=== PATIENT | male | born 1940 | race Caucasian/White ===

== ENCOUNTER 2017-11-22 12:16 | Emergency (ER) | payer MEDICARE | END 2017-11-22 12:50 | disposition home or self-care (01) | LOC: NAV ERS 12:16 | DX: J06.9 Acute upper respiratory infection, unspecified (principal); M10.9 Gout, unspecified; Z87.891 Personal history of nicotine dependence; Z79.899 Other long term (current) drug therapy | CPT/HCPCS: 99283 ==

== ENCOUNTER 2017-11-26 15:36 | Emergency (ER) | payer MEDICARE ==
[2017-11-26] MEDS ORDERED: Lidocaine 1% 20 ML MDV ONE (17:19)
[2017-11-26] MEDS ORDERED: cefTRIAXone\\ROCEPHIN 1 GM VIAL ONE (17:19)
[2017-11-26] MEDS ORDERED: methylPREDNISolone Acetate 40 mg/ml Vial ONE (17:19)
--- NOTE | 2017-11-26 17:36 | RAD ---
PORTABLE CHEST ONE VIEW: 11/26/17 at 4:12 p.m. HISTORY: Dyspnea, cough. FINDINGS: The heart size is normal. The lungs expanded without focal areas of consolidation, pneumothorax or pl eural effusions. IMPRESSION: No radiographic evidence of acute cardiopulmonary process. POS: [facility]
== END 2017-11-26 17:50 | disposition home or self-care (01) ==
LOC: NAV ERS 15:36
DX: J20.9 Acute bronchitis, unspecified (principal); M10.9 Gout, unspecified; Z87.891 Personal history of nicotine dependence; Z79.899 Other long term (current) drug therapy
CPT/HCPCS: 71045; 94640; 96372; J0696; J1030; J2001; J7620

== ENCOUNTER 2020-12-18 10:23 | Emergency (ER) | payer MEDICARE | END 2020-12-18 12:40 | disposition home or self-care (01) | LOC: NAV ERS 10:23 | DX: S70.02XA Contusion of left hip, initial encounter (principal); I25.10 Atherosclerotic heart disease of native coronary artery without angina pectoris; Z87.891 Personal history of nicotine dependence; Z79.899 Other long term (current) drug therapy; W22.8XXA Striking against or struck by other objects, initial encounter | CPT/HCPCS: 70450; 72131 ==

== ENCOUNTER 2021-04-05 12:19 | Emergency (ER) | payer MEDICARE | END 2021-04-05 14:38 | disposition home or self-care (01) | LOC: NAV ERS 12:19 | DX: K08.89 Other specified disorders of teeth and supporting structures (principal); Z87.891 Personal history of nicotine dependence | CPT/HCPCS: 70360; 71046 ==

== ENCOUNTER 2021-05-07 13:54 | Emergency (ER) | payer MEDICARE ==
[2021-05-09 02:21] LABS: SARS-CoV-2 PCR by NAA DETECTED (NotDetected)
== END 2021-05-07 15:32 | disposition home or self-care (01) ==
LOC: NAV ERS 13:54
DX: U07.1 COVID-19 (principal); I25.10 Atherosclerotic heart disease of native coronary artery without angina pectoris; Z87.891 Personal history of nicotine dependence; Z79.899 Other long term (current) drug therapy
CPT/HCPCS: 99283; U0003; U0005

== ENCOUNTER 2021-11-03 13:36 | Emergency (ER) | payer OTHER, MEDICARE ==
[2021-11-03] MEDS ORDERED: Boostrix 0.5 ML (Tdap) VIAL ONE (14:03)
[2021-11-03] MEDS ORDERED: Acetaminophen/Codeine 30-300mg Tablet ONE (14:03)
== END 2021-11-03 15:35 | disposition home or self-care (01) ==
LOC: NAV ERS 13:36
DX: S22.41XA Multiple fractures of ribs, right side, initial encounter for closed fracture (principal); S60.811A Abrasion of right wrist, initial encounter; I25.10 Atherosclerotic heart disease of native coronary artery without angina pectoris; W10.1XXA Fall (on)(from) sidewalk curb, initial encounter; Y92.512 Supermarket, store or market as the place of occurrence of the external cause; Z23 Encounter for immunization; Z87.891 Personal history of nicotine dependence; Z79.899 Other long term (current) drug therapy
CPT/HCPCS: 71250; 90471; 90715; 94799

== ENCOUNTER 2023-08-03 11:58 | Emergency (ER) | payer MEDICARE | END 2023-08-03 13:55 | disposition home or self-care (01) | LOC: NAV ERS 11:58 | DX: S22.41XA Multiple fractures of ribs, right side, initial encounter for closed fracture (principal); I25.10 Atherosclerotic heart disease of native coronary artery without angina pectoris; Z87.891 Personal history of nicotine dependence; Z79.899 Other long term (current) drug therapy; W19.XXXA Unspecified fall, initial encounter | CPT/HCPCS: 94799 ==

== ENCOUNTER 2024-05-31 15:25 | Emergency (ER) | payer MEDICARE ==
[2024-05-31] MEDS ORDERED: Bacitracin 1 PK ONE (15:54)
== END 2024-05-31 16:15 | disposition home or self-care (01) ==
LOC: NAV ERS 15:25
DX: S51.812A Laceration without foreign body of left forearm, initial encounter (principal); I25.10 Atherosclerotic heart disease of native coronary artery without angina pectoris; Z79.82 Long term (current) use of aspirin; W22.8XXA Striking against or struck by other objects, initial encounter
CPT/HCPCS: 99283